=== PATIENT | male | born 1970 | race African-American/Black ===

== ENCOUNTER 2019-02-02 12:14 | Emergency (ER) | payer SELFPAY ==
[~2019-02-02] VITALS: Ht 185.4 cm; Wt 100.0 kg
[2019-02-02] MEDS ORDERED: KETOROLAC 60MG/2ML VIAL IM ONE (15:00)
[2019-02-02 17:32] VITALS: BP 124/88
== END 2019-02-02 17:32 | disposition home or self-care (01) ==
LOC: ER 12:14
DX: S03.2XXA Dislocation of tooth, initial encounter (principal); S00.83XA Contusion of other part of head, initial encounter; S40.011A Contusion of right shoulder, initial encounter; E11.9 Type 2 diabetes mellitus without complications; Y04.0XXA Assault by unarmed brawl or fight, initial encounter; Y93.89 Activity, other specified; Y92.89 Other specified places as the place of occurrence of the external cause; Y99.8 Other external cause status
CPT/HCPCS: 70450; 70486; 73030; 96372; 99284; J1885; Z7610